=== PATIENT | male | born 1960 | race Caucasian/White ===

== ENCOUNTER 2021-08-03 02:48 | Inpatient (IN) | payer MEDICAID ==
[~2021-08-03] VITALS: Ht 160 cm; Wt 87.1 kg
[2021-08-03 04:27] LABS: CHLORIDE 114 mEq/L (98-107)
[2021-08-03 04:28] LABS: BASOPHILS % 0.8 % (0.0-2.0); EOSINOPHILS % 4.2 % (0.0-5.0); HEMATOCRIT. 34.3 % (42.0-52.0); HEMOGLOBIN. 11.1 g/dL (14.0-18.0); MEAN CORPUSCULAR HEMOGLOBIN 27.5 pg (28.0-32.0); MEAN CORPUSCULAR VOLUME 84.5 fL (80.0-94.0); MEAN PLATELET VOLUME 9.1 fl (7.4-10.4); MONOCYTES % 4.7 % (2.0-8.0); NEUTROPHILS % 71.3 % (40.0-76.0); PLATELET 190 x1000/uL (130-400); RED BLOOD CELL COUNT 4.06 mill/uL (4.7-6.1); RED CELL DISTRIBUTION WIDTH 17.7 % (11.6-14.6)
[2021-08-03 04:31] LABS: ETHANOL BLOOD < 10 mg/dL
[2021-08-03] MEDS ORDERED: ASPIRIN 325MG EC TABLET PO ONE (05:00)
[2021-08-03] MEDS ORDERED: FUROSEMIDE 40MG/4ML VIAL IVP ONE (05:30)
[2021-08-03 08:04] LABS: CLARITY URINE CLEAR (CLEAR); COLOR URINE YELLOW (YELLOW); KETONES URINE NEGATIVE (NEGATIVE); LEUKOCYTE ESTERASE URINE NEGATIVE (NEGATIVE); NITRITE URINE NEGATIVE (NEGATIVE); OCCULT BLOOD URINE NEGATIVE (NEGATIVE); PROTEIN URINE NEGATIVE (NEGATIVE); SPECIFIC GRAVITY URINE 1.008 (1.005-1.030); UROBILINOGEN URINE 0.2 E.U./dL (0.2-1.0)
[2021-08-03] MEDS ORDERED: ACETAMINOPHEN 325MG TABLET PO PRN ×2 (10:45)
[2021-08-03] MEDS ORDERED: ONDANSETRON HCL 4MG/2ML INJ IV PRN (10:45)
[2021-08-03] MEDS ORDERED: DEXTROSE 50% WATER 50ML SYRINGE IV PRN (10:45)
[2021-08-03] MEDS ORDERED: DIPHENHYDRAMINE 50MG/ML VIAL IV PRN (10:45)
[2021-08-03] MEDS ORDERED: MAGNESIUM/ALUMINUM HYDROXIDE/SIMETHICONE 30ML UDC PO PRN (10:45)
[2021-08-03] MEDS ORDERED: ZOLPIDEM TARTRATE 5MG TABLET PO PRN (10:45)
[2021-08-03] MEDS ORDERED: GUAIFENESIN 200MG/10ML SUGAR FREE UDC PO PRN (10:45)
[2021-08-03] MEDS: LOSARTAN POTASSIUM 25 MG TABLET PO SCH (11:30)
[2021-08-03] MEDS ORDERED: POTASSIUM CHLORIDE 20MEQ TABLET SR PO NR (11:30)
[2021-08-03] MEDS: FUROSEMIDE 40MG/4ML VIAL IVP SCH (11:35)
[2021-08-03] MEDS: SPIRONOLACTONE 25MG TABLET PO SCH (11:35)
[2021-08-03] MEDS: BLOOD SUGAR DIAGNOSTIC STRIP TEST SCH ×3 (11:36→21:53)
[2021-08-03] MEDS: INSULIN LISPRO 100 UNITS/ML SUBCUT SCH ×3 (11:36→21:00)
[2021-08-03] MEDS: ENOXAPARIN 40MG/0.4ML SYR SUBCUT SCH (14:41)
[2021-08-03] MEDS: SODIUM CHLORIDE 0.9% INJ 3ML FLUSH IVF SCH ×2 (14:41→21:54)
[2021-08-03 21:35] VITALS: BP 116/89
[2021-08-03] MEDS: CARVEDILOL 6.25 MG TABLET PO SCH (21:53)
[2021-08-03] MEDS ORDERED: METF-414 PO (22:17)
[2021-08-03] MEDS ORDERED: RIVA20TA PO (22:17)
[2021-08-03] MEDS ORDERED: METO25TA3 PO (22:17)
[2021-08-03] MEDS ORDERED: LOSA25TA26 PO (22:17)
[2021-08-03] MEDS ORDERED: ISOS20TA57 PO (22:17)
[2021-08-03] MEDS ORDERED: ASPI-1406 PO (22:17)
[2021-08-03] MEDS ORDERED: LIP40 PO (22:17)
[2021-08-03 23:08] VITALS: BP 116/89
[2021-08-03 23:30] VITALS: BP 92/65
[2021-08-04] VITALS: BP 93/65
[2021-08-04] MEDS ORDERED: *PATIENT'S OWN MEDICATION STORAGE XX SCH (01:45)
[2021-08-04 04:00] VITALS: BP 94/60
[2021-08-04] MEDS: SODIUM CHLORIDE 0.9% INJ 3ML FLUSH IVF SCH ×3 (05:35→21:35)
[2021-08-04] MEDS: INSULIN LISPRO 100 UNITS/ML SUBCUT SCH ×4 (05:35→21:00)
[2021-08-04] MEDS: BLOOD SUGAR DIAGNOSTIC STRIP TEST SCH ×4 (05:35→21:29)
[2021-08-04 06:52] LABS: BASOPHILS % 0.9 % (0.0-2.0); EOSINOPHILS % 4.4 % (0.0-5.0); HEMATOCRIT. 38.6 % (42.0-52.0); HEMOGLOBIN. 12.4 g/dL (14.0-18.0); LYMPHOCYTES % 19.2 % (20.0-50.0); MEAN CORPUSCULAR HEMOGLOBIN 27.1 pg (28.0-32.0); MEAN CORPUSCULAR VOLUME 84.2 fL (80.0-94.0); MEAN PLATELET VOLUME 9.3 fl (7.4-10.4); MONOCYTES % 6.5 % (2.0-8.0); PLATELET 197 x1000/uL (130-400); RED BLOOD CELL COUNT 4.58 mill/uL (4.7-6.1); RED CELL DISTRIBUTION WIDTH 17.9 % (11.6-14.6)
[2021-08-04 07:33] LABS: CHLORIDE 110 mEq/L (98-107)
[2021-08-04 07:47] LABS: CREATINE KINASE 47 IU/L (39-308); CREATINE KINASE MB FRACTION 1.8 ng/mL (0.5-3.6)
[2021-08-04 08:00] VITALS: BP 102/75
[2021-08-04] MEDS: FUROSEMIDE 40MG/4ML VIAL IVP SCH (08:54)
[2021-08-04] MEDS: LOSARTAN POTASSIUM 25 MG TABLET PO SCH (08:54)
[2021-08-04] MEDS: ASPIRIN 81MG EC TABLET PO SCH (08:54)
[2021-08-04] MEDS: CARVEDILOL 6.25 MG TABLET PO SCH ×2 (08:55→21:29)
[2021-08-04] MEDS: SPIRONOLACTONE 25MG TABLET PO SCH (08:55)
[2021-08-04 12:00] VITALS: BP 102/67
[2021-08-04 16:00] VITALS: BP 100/67
[2021-08-04] MEDS: ENOXAPARIN 40MG/0.4ML SYR SUBCUT SCH (17:03)
[2021-08-04 20:00] VITALS: BP 114/72
[2021-08-05] VITALS (7 sets, daily range): BP systolic 80–104; BP diastolic 51–73
[2021-08-05] MEDS: BLOOD SUGAR DIAGNOSTIC STRIP TEST SCH ×4 (05:17→21:39)
[2021-08-05] MEDS: SODIUM CHLORIDE 0.9% INJ 3ML FLUSH IVF SCH ×3 (05:17→21:41)
[2021-08-05] MEDS: INSULIN LISPRO 100 UNITS/ML SUBCUT SCH ×4 (05:18→21:00)
[2021-08-05 07:00] LABS: EOSINOPHILS % 6.4 % (0.0-5.0); HEMOGLOBIN. 12.4 g/dL (14.0-18.0); LYMPHOCYTES % 21.9 % (20.0-50.0); MEAN CORPUSCULAR HEMOGLOBIN 27.5 pg (28.0-32.0); MEAN PLATELET VOLUME 9.4 fl (7.4-10.4); MONOCYTES % 7.6 % (2.0-8.0); NEUTROPHILS % 63.1 % (40.0-76.0); PLATELET 204 x1000/uL (130-400); RED BLOOD CELL COUNT 4.52 mill/uL (4.7-6.1); RED CELL DISTRIBUTION WIDTH 17.8 % (11.6-14.6)
[2021-08-05] MEDS: ASPIRIN 81MG EC TABLET PO SCH (08:40)
[2021-08-05] MEDS: SPIRONOLACTONE 25MG TABLET PO SCH (08:40)
[2021-08-05] MEDS: CARVEDILOL 6.25 MG TABLET PO SCH (09:00)
[2021-08-05] MEDS: FUROSEMIDE 40MG/4ML VIAL IVP SCH (09:00)
[2021-08-05] MEDS: LOSARTAN POTASSIUM 25 MG TABLET PO SCH (09:00)
[2021-08-05] MEDS: ENOXAPARIN 40MG/0.4ML SYR SUBCUT SCH (14:18)
[2021-08-05] MEDS: CARVEDILOL 3.125 MG TABLET PO SCH (21:00)
[2021-08-06] VITALS: BP 103/67
[2021-08-06 04:00] VITALS: BP 101/65
[2021-08-06] MEDS: SODIUM CHLORIDE 0.9% INJ 3ML FLUSH IVF SCH ×3 (05:40→22:55)
[2021-08-06] MEDS: BLOOD SUGAR DIAGNOSTIC STRIP TEST SCH ×2 (05:40→12:10)
[2021-08-06] MEDS: INSULIN LISPRO 100 UNITS/ML SUBCUT SCH ×2 (05:40→12:40)
[2021-08-06 08:00] VITALS: BP 91/54
[2021-08-06] MEDS: SPIRONOLACTONE 25MG TABLET PO SCH (08:50)
[2021-08-06] MEDS: ASPIRIN 81MG EC TABLET PO SCH (08:50)
[2021-08-06] MEDS: CARVEDILOL 3.125 MG TABLET PO SCH ×2 (08:50→21:00)
[2021-08-06] MEDS: FUROSEMIDE 40MG TABLET PO SCH (08:50)
[2021-08-06 11:48] LABS: CHLORIDE 108 mEq/L (98-107)
[2021-08-06 12:00] VITALS: BP 104/75
[2021-08-06] MEDS: ENOXAPARIN 40MG/0.4ML SYR SUBCUT SCH (14:43)
[2021-08-06 16:00] VITALS: BP 103/68
[2021-08-06 20:00] VITALS: BP 101/65
[2021-08-07] VITALS: BP 109/66
[2021-08-07 06:00] VITALS: BP 100/62
[2021-08-07 07:30] LABS: BASOPHILS % 0.8 % (0.0-2.0); EOSINOPHILS % 4.9 % (0.0-5.0); HEMATOCRIT. 40.1 % (42.0-52.0); HEMOGLOBIN. 13.2 g/dL (14.0-18.0); MEAN CORPUSCULAR HEMOGLOBIN 27.9 pg (28.0-32.0); MEAN CORPUSCULAR VOLUME 84.8 fL (80.0-94.0); MEAN PLATELET VOLUME 9.3 fl (7.4-10.4); MONOCYTES % 7.1 % (2.0-8.0); NEUTROPHILS % 64.2 % (40.0-76.0); PLATELET 190 x1000/uL (130-400); RED BLOOD CELL COUNT 4.73 mill/uL (4.7-6.1); RED CELL DISTRIBUTION WIDTH 17.3 % (11.6-14.6)
[2021-08-07] MEDS: CARVEDILOL 3.125 MG TABLET PO SCH (08:36)
[2021-08-07] MEDS: SPIRONOLACTONE 25MG TABLET PO SCH (08:41)
[2021-08-07] MEDS: ASPIRIN 81MG EC TABLET PO SCH (08:41)
[2021-08-07] MEDS: FUROSEMIDE 40MG TABLET PO SCH (08:41)
[2021-08-07] MEDS ORDERED: ENOXAPARIN 30MG/0.3ML SYR SUBCUT SCH (09:00)
[2021-08-07] MEDS: SODIUM CHLORIDE 0.9% INJ 3ML FLUSH IVF SCH (16:50)
[2021-08-07 18:49] VITALS: BP 103/80
== END 2021-08-07 22:22 | disposition home or self-care (01) | DRG 194 ==
LOC: ER 02:48 → MICUSO 05:24 → 8WST 19:11
PROVIDERS: ADMIT Internal Medicine; ATTEND Internal Medicine
DX: I11.0 Hypertensive heart disease with heart failure (principal); E46 Unspecified protein-calorie malnutrition; I31.3 Pericardial effusion (noninflammatory); I42.0 Dilated cardiomyopathy; E11.9 Type 2 diabetes mellitus without complications; Z20.822 Contact with and (suspected) exposure to COVID-19; I45.9 Conduction disorder, unspecified; K21.9 Gastro-esophageal reflux disease without esophagitis; I50.23 Acute on chronic systolic (congestive) heart failure; E78.00 Pure hypercholesterolemia, unspecified; Z87.891 Personal history of nicotine dependence; Z95.810 Presence of automatic (implantable) cardiac defibrillator; Z79.01 Long term (current) use of anticoagulants; Z79.82 Long term (current) use of aspirin; Z79.899 Other long term (current) drug therapy; Z68.34 Body mass index [BMI] 34.0-34.9, adult
CPT/HCPCS: 36415; 71045; 80048; 80053; 80320; 81003; 82550; 82553; 82962; 83036; 83735; 83880; 84443; 84484; 85025; 85379; 87426; 87804; 93005; 93306; 93970; 97161; 99285; J1650; J1815; J1940; G0480